=== PATIENT | female | born 1955 | race Caucasian/White ===

== ENCOUNTER 2018-03-03 02:18 | Inpatient (IN) | payer OTHER ==
[~2018-03-03] VITALS: Ht 152.4 cm; Wt 45.8 kg
[~2018-03-03 02:18] MED LIST: AMITRIPTYLINE H10 M2 PO; PLAQUENIL200 M1 PO; PREDNISONE20 M1 PO; SYNTHROID100 MCG PO; XANAX1 M1 PO
--- NOTE | 2018-03-03 10:26 | Admission Core Measures ---
Acute Coronary Syndrome (CM) ACS Core Measures Acute Coronary Syndrome Diagnosis No Congestive Heart Failure (NEW) CHF Core Measures Congestive Heart Failure Diagnosis No Cerebrovascular Accident CVA Core Measures CVA/TIA Diagnosis No Venous Thromboembolism VTE Core Yvette (View Protocol) VTE Risk Factors Surgery No Mechanical VTE Prophylaxis d/t N/A MechProphylax Ordered No VTE Pharm Prophylaxis d/t NA PharmProphylax ordered Problem List As ranked by this Provider includes Assessment & Plan 1. Primary osteoarthritis of left hip HOME MEDS Home Med List Alprazolam (Xanax) 1 MG TABLET 1 TAB PO DAILY anxiety (Reported) Amitriptyline HCl 10 MG TABLET 1 TAB PO QPM depression (Reported) Hydroxychlorquine (Plaquenil) 200 MG TABLET 1 TAB PO BID rheumatoid arthritis (Reported) Levothyroxine Sodium (Synthroid) 100 MCG TABLET 1 TAB PO DAILY replacement ( Reported) Prednisone 20 MG TABLET 1 TAB PO DAILY arthritis (Reported)
[2018-03-03] MEDS ORDERED: COLACE100 M1 PO (10:29)
[2018-03-03] MEDS ORDERED: MIRALAX17 G1 PO (10:29)
[2018-03-03] MEDS ORDERED: ASPIRIN EC81 M1 PO (10:29)
[2018-03-03] MEDS ORDERED: DILAUDID2 M1 PO (10:29)
--- NOTE | 2018-03-03 10:32 | Patient Discharge Instructions ---
Discharge Instructions General Discharge Information You were seen/treated for: Left hip osteoarthritis You had these procedures: Left total hip arthroplasty Watch for these problems: Fever over 100.4 Redness and swelling around wound Drainage from wound Unable to bear weight on left lower extremity Chest pain, shortness of breath No bath, but you may shower: Yes Other wound care: Keep wound clean and dry Diet Continue normal diet: Yes Activity Activity Limited to: Weight bear as tolerated (with rolling walker) Acute Coronary Syndrome Inclusion Criteria At DC or during hospital stay patient has or had the following: ACS DIAGNOSIS No Discharge Core Measures Meds if any: Prescribed or Continued at Discharge Meds if any: NOT Prescribed or Continued at Discharge Congestive Heart Failure Inclusion Criteria At DC or during hospital stay patient has or had the following: CHF DIAGNOSIS No Discharge Core Measures Meds if any: Prescribed or Continued at Discharge Meds if any: NOT Prescribed or Continued at Discharge Cerebrovascular accident Inclusion Criteria At DC or during hospital stay patient has or had the following: CVA/TIA Diagnosis No Discharge Core Measures Meds if any: Prescribed or Continued at Discharge Meds if any: NOT Prescribed or Continued at Discharge Venous thromboembolism Inclusion Criteria VTE Diagnosis No VTE Type NONE VTE Confirmed by (Test) NONE Discharge Core Measures - Per Current guidelines, there needs to be overlap - treatment for the first 5 days of Warfarin therapy. - If discharged on Warfarin prior to 5 days of - overlap therapy, the patient will need to be - assessed for post discharge needs including - *Post discharge parental anticoagulation - *Warfarin and/or parental anticoagulation education - *Follow up date to check INR post discharge At least 5 days overlap therapy as Inpatient No Meds if any: Prescribed or Continued at Discharge Note: Overlap Therapy is Warfarin and Anticoagulant Meds if any: NOT Prescribed or Continued at Discharge
--- NOTE | 2018-03-03 10:34 | Surg Short-stay <48hrs Dis Sum ---
Visit Information Visit Dates Admission Date: 03/03/18 Discharge Date: 03/03/18 Surgical Short Stay DC Summary Admission Diagnosis: Left hip primary unilateral osteoarthritis Final Diagnosis: Same Procedure(s): Left total hip arthroplasty Summary/Significant Findings: Patient presented to [facility] on March 03, 2018 for an elective left total hip arthroplasty by Dr. Salmon. Patient tolerated the procedure well and was brought to the recovery room in stable condition. Postoperatively, she was tolerating regular diet, voiding spontaneously, her pain was well managed with oral medication, she had ambulated with physical therapy and was cleared for discharge to home using a rolling walker. Discharge instructions were reviewed with the patient and she understood and she was given prescriptions for home. Condition at Discharge: Good Discharge Disposition: home health services Discharge instructions provided to patient/family: Yes Post discharge follow-up plan: Follow-up with Dr. Salmon in 6 weeks Copies to: Leonid CADET,Lay De La Rosa
--- NOTE | 2018-03-03 11:52 | RADIOLOGY REPORT ---
EXAMINATION: XR HIP, LEFT CLINICAL INFORMATION: Status post left total hip replacement in PACU. COMPARISON: None available. TECHNIQUE: AP and cross table views of the left hip were obtained. FINDINGS: There are sequelae of a left total hip arthroplasty. The hardware appears intact and in anatomic position. There are postoperative changes in the periarticular soft tissues. IMPRESSION: 1. Status post total left arthroplasty.
[2018-03-03 12:15] VITALS: BP 120/64; BP 120/645
--- NOTE | 2018-03-03 14:21 | PN- Orthopedic ---
See Addendum Subjective Subjective: POST-OP NOTE "I want to go home". No complaints. Denies dizziness. No shortness of breath. No chest pains. PT to reassess her @ 3:30 due to some concern at their initial post -op assessment. The patient is frustrated about needing to be reassessed, and states "I am going home today". Safety concerns re-iterated to patient and her son multiple times. She's willing to be re-assessed later this afternoon. Objective Vital Signs and I&Os Vital Signs Date Time Temp Pulse Resp B/P B/P Pulse O2 O2 Flow FiO2 Mean Ox Delivery Rate 03/03 1328 Room Air 03/03 1215 97.6 74 20 120/645 100 Room Air Intake & Output 03/03 1600 03/03 0800 03/03 0000 03/02 1600 03/02 0800 03/02 0000 Intake Total Output Total Balance Patient 101 lb 100 lb Weight Weight Reported by Patient Measurement Method Physical Exam: General - alert & oriented x 3. comfortable. no acute distress. Lungs - clear bilaterally. no w/r/r. Cardiac - s1s2. reg. Abdomen - soft. nontender. Extremities - left hip dressing c/d/i. no drains. no hematoma. calves soft and nontender b/l. nvi. Current Medications: Current Medications Sig/Claudio Start time Last Medication Dose Route Stop Time Status Admin Acetaminophen 1,000 MG Q8H 03/03 2000 AC IV 03/04 1201 Acetaminophen 1,000 MG Q6 03/03 1200 DC IV 03/04 0601 Acetaminophen 0 .STK-MED ONE 03/03 0754 DC PO Acetaminophen 975 MG ONCE 03/03 0000 DC PO 03/03 2359 Alprazolam 1 MG DAILY 03/04 0900 DC PO 03/11 0859 Alprazolam 1 MG DAILY 03/04 0900 AC PO 03/11 0859 Amitriptyline HCl 10 MG QPM 03/03 2100 DC PO Amitriptyline HCl 10 MG QPM 03/03 2100 AC PO Aspirin 81 MG BID 03/03 2100 AC PO Cefazolin Sodium 2 GM IQ8 03/03 1600 AC N/A 1 UNIT IV 03/04 0029 Cefazolin Sodium 2,000 MG ONCE 03/03 0000 DC IV 03/03 2359 Dextrose/Sodium 1,000 ML .[id number] 03/03 1215 AC Chloride IV 03/04 0134 Docusate Sodium 100 MG BID 03/03 2100 AC PO Hydromorphone HCl 2 MG Q4P PRN 03/03 1215 AC PO Hydromorphone HCl 4 MG Q4P PRN 03/03 1215 AC PO Hydroxychloroquine 200 MG BID 03/03 2100 DC Sulfate PO Hydroxychloroquine 200 MG BID 03/03 2100 AC Sulfate PO Levothyroxine Sodium 0.1 MG DAILY AC 03/04 0900 DC PO Levothyroxine Sodium 0.1 MG DAILY AC 03/04 0900 AC PO Morphine Sulfate 2 MG Q2P PRN 03/03 1215 AC IV Ondansetron HCl 4 MG Q6P PRN 03/03 1215 AC IV Oxycodone HCl 0 .STK-MED ONE 03/03 0753 DC PO Oxycodone HCl 10 MG ONCE 03/03 0000 DC PO 03/03 2359 Polyethylene Glycol 17 GM DAILY 03/04 0900 AC PO Prednisone 20 MG DAILY 03/04 0900 DC PO Prednisone 20 MG DAILY 03/04 0900 AC PO Assessment/Plan Assessment/Plan This 63 year old female with hx GERD, rheumatoid arthritis, hypothyroidism, copd , hx IBS, anxiety, is POD#0 s/p left total hip replacement for DJD advance diet as tolerated pain control as ordered asa bid - dvt ppx jesus-operative ancef home meds re-ordered, including prednisone and plaquenil due to void PT to re-assess her this afternoon case management to assist with home health services will d/w Core Measures Venous Thromboembolism VTE Risk Factors Surgery No Mechanical VTE Prophylaxis d/t N/A MechProphylax Ordered No VTE Pharm Prophylaxis d/t NA PharmProphylax ordered
--- NOTE | 2018-03-03 15:21 | Operative Report ---
Operative/Inv Procedure Report Surgery Date: 03/03/18 Name of Procedure: Left total hip replacement Pre-Operative Diagnosis: Primary left hip DJD Post-Operative Diagnosis: Same Estimated Blood Loss: 250 Surgeon/Chief Yeoman: Viky CADET,Jose Mane Anesthesia: block Operative/Procedure Note Note: Description of Procedure: The patient was taken to the operating room and positively identified. After induction of spinal anesthesia and administration of appropriate pre-operative antibiotics, the patient was positioned supine on the operating room table and all bony prominences were well padded. After performing a surgical timeout, the left lower extremity was prepped and draped in the usual sterile fashion. A direct anterior approach was made to the left hip. The incision was carried sharply through superficial soft tissues to the level of the fascia. Meticulous hemostasis was maintained with Bovie electocautery. The fascia over the tensor fascia kedar muscle was opened sharply and the interval between the TFL and the sartorius was entered bluntly taking care to stay lateral to the lateral femoral cutaneous nerve. Retractors were placed around the femoral neck and the pericapsular fat was identified. The ascending branches of the lateral femoral circumflex vessels were identified and carefully coagulated. The pericapsular fat and anterior capsule were then resected. A napkin ring osteotomy was performed and the femoral head was removed without difficulty. Attention was then turned to the acetabulum. After appropriate placement of retractors, the acetabulum was exposed. Soft tissue was cleaned from the acetabular margin and notch. Overhanging osteophytes were removed and the teardrop was exposed. The acetabulum was then sequentially reamed to accept a 52 mm [place] Tritanium hemispherical solid shell. This was impacted into place in the appropriate position and fitted with a 36 mm Trident X3 zero degree polyethylene insert. Attention was then turned to the femur. After performing the appropriate ligament releases, the proximal femur was exposed. It was then sequentially broached to accept a size 3 [place] Accolade II stem. This was trialed for leg length and stability. The trial component was removed and the final component was impacted into place. The trunnion was carefully cleaned and fit with a 36 mm, +0 Biolox delta ceramic femoral head. The hip was reduced and put through a full range of motion and found to be stable. The articular space was then irrigated with sterile saline. The periarticular soft tissues were infilitrated with Marcaine. The fascial layer was closed with interrupted #1 vicryl suture and the skin was re-approximated with interrupted 2 -0 vicryl. The skin was closed with a running 3-0 V-Lock suture. Steri-strips and a sterile dressing were applied. The patient was awakened and taken to the recovery room in satisfactory condition.
[2018-03-03 15:45] VITALS: BP 116/60
[2018-03-03 16:19] VITALS: BP 130/80
== END 2018-03-03 17:49 | DRG 470 ==
LOC: SDA 02:18 → ENRESERV 10:30 → ENTRNSPT 11:29 → EDTRNSPTSTS 11:33 → 2NA 11:38 → CMPTRNSPT 11:49 → ENTRNSPT 17:15 → CMPTRNSPT 17:40 → 2NA 17:49
PROC: 0SRB04A Replacement of Left Hip Joint with Ceramic on Polyethylene Synthetic Substitute, Uncemented, Open Approach (ICD-10-PCS; principal; 2018-03-03)
DX: M16.12 Unilateral primary osteoarthritis, left hip (principal); K21.9 Gastro-esophageal reflux disease without esophagitis; M06.9 Rheumatoid arthritis, unspecified; K58.9 Irritable bowel syndrome, unspecified; F41.9 Anxiety disorder, unspecified; E03.9 Hypothyroidism, unspecified; J44.9 Chronic obstructive pulmonary disease, unspecified
CPT/HCPCS: 2NASP; 73502-LT; 97116-GO; 97161-GP; J0131; J0690; J0735; J2405; J3490; J7042